=== PATIENT | female | born 2005 | race Caucasian/White ===

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

== ENCOUNTER 2025-03-11 21:43 | Outpatient (REF) | payer OTHER, SELFPAY ==
[2025-03-12 15:28] LABS: Lab Add On Test DONE
[2025-03-13 12:12] LABS: Chlamydia Result Negative (Negative); GC Result Negative (Negative)
[2025-03-13 13:19] LABS: Chlamydia Result Negative (Negative); GC Result Negative (Negative)
== END 2025-03-11 21:44 | disposition home or self-care (01) ==
LOC: LBN 21:43
PROVIDERS: PCP Nurse Practitioner Pediatrics; Visit Provider Family Medicine
DX: J02.9 Acute pharyngitis, unspecified (principal); Z11.3 Encounter for screening for infections with a predominantly sexual mode of transmission
CPT/HCPCS: 87491; 87591; 87070